=== PATIENT | female | born 2000 | race African-American/Black ===

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

== ENCOUNTER 2020-03-03 15:45 | Emergency (ER) | payer SELFPAY ==
--- NOTE | 2020-03-03 16:17 | ER Document Report ---
ED Medical Screen (RME) - General Chief Complaint: Vaginal Bleeding Stated Complaint: VAGINAL BLEEDING Time Seen by Provider: 03/03/20 16:05 Mode of Arrival: Ambulatory Information source: Patient Notes: 20-year-old female presented to ED for complaint of heavy vaginal bleeding with severe pain. She states this l period started yesterday. She states that today it is much heavier. She states the this cycle has been much heavier than her normal. She states since she started yesterday till today she is gone to 18 tampons multiple panty liners and over the last 2 hours she is leaked through tampons panty liner and her blood gains. She states her cramps are worse than normal. She states she got off of control in June which she was taken due to her. But they were starting to make her gain weight. She states that she had a couple good peers but the last 2 have been horrible. She states she does not smoke drink or use any illicit drugs. I have greeted and performed a rapid initial assessment of this patient. A comprehensive ED assessment and evaluation of the patient, analysis of test results and completion of medical decision making process will be conducted by an additional ED providers. - Related Data Allergies/Adverse Reactions: No Known Allergies Allergy (Unverified 11/14/19 23:42) Past Medical History Psychiatric Medical History: Reports: Hx Anxiety Physical Exam - Vital signs Vitals: Temp Pulse Resp BP Pulse Ox 98.2 F 84 20 128/70 H 100 03/03/20 15:51 03/03/20 15:51 03/03/20 15:51 03/03/20 15:51 03/03/20 15:51 Course - Vital Signs Vital signs: Temp Pulse Resp BP Pulse Ox 98.2 F 84 20 128/70 H 100 03/03/20 15:51 03/03/20 15:51 03/03/20 15:51 03/03/20 15:51 03/03/20 15:51 - Laboratory Result Diagrams: 03/03/20 16:21 03/03/20 16:21 Laboratory results interpreted by me: 03/03/20 03/03/20 16:21 16:21 Glucose 131 H ALT 39 H Alkaline Phosphatase 140 H Urine Protein 100 H Urine Blood LARGE H Urine Urobilinogen 2.0 H
[2020-03-03 16:40] LABS: ABSOLUTE EOSINOPHILS # (AUTO) 0.2 10^3/uL (0.0-0.6); ABSOLUTE LYMPHOCYTES (AUTO) 2.3 10^3/uL (0.5-4.7); ABSOLUTE MONOCYTES (AUTO) 0.4 10^3/uL (0.1-1.4); ABSOLUTE NEUT (AUTO) 3.3 10^3/uL (1.7-8.2); BASOPHILS % (AUTO) 0.6 % (0-2); EOSINOPHILS % (AUTO) 3.4 % (0-6); HEMATOCRIT 38.9 % (36.0-47.0); HEMOGLOBIN 13.1 g/dL (12.0-15.5); MEAN CORPUSCULAR HEMOGLOBIN 27.7 pg (27.0-33.4); MEAN CORPUSCULAR HGB CONC 33.7 g/dL (32.0-36.0); MEAN CORPUSCULAR VOLUME 82 fl (80-97); MONOCYTES % (AUTO) 5.7 % (3-13); PLATELET COUNT 305 10^3/uL (150-450); RED BLOOD COUNT 4.74 10^6/uL (3.72-5.28); RED CELL DISTRIBUTION WIDTH 13.8 % (11.5-14.0); SEGMENTED NEUTROPHILS % (AUTO) 53.3 % (42-78); TOTAL CELLS COUNTED % (AUTO) 100 %; WHITE BLOOD COUNT 6.1 10^3/uL (4.0-10.5)
[2020-03-03 16:42] LABS: APPEARANCE,URINE CLOUDY; BILIRUBIN,URINE NEGATIVE (NEGATIVE); COLOR,URINE RED; GLUCOSE, URINE NEGATIVE (NEGATIVE); KETONES,URINE NEGATIVE (NEGATIVE); LEUKOCYTE ESTERASE,URINE NEGATIVE (NEGATIVE); NITRITE,URINE NEGATIVE (NEGATIVE); PROTEIN,URINE 100 mg/dL (NEGATIVE)
[2020-03-03 17:01] LABS: ALKALINE PHOSPHATASE 140 U/L (38-126); ANION GAP 7 (5-19); ASPARTATE AMINO TRANSFERASE 29 U/L (14-36); BILIRUBIN,DIRECT 0.2 mg/dL (0.0-0.4); BILIRUBIN,TOTAL 0.6 mg/dL (0.2-1.3); BLOOD UREA NITROGEN 7 mg/dL (7-20); CALCIUM 9.6 mg/dL (8.4-10.2); CARBON DIOXIDE 27 mmol/L (22-30); CHLORIDE 105 mmol/L (98-107); GLUCOSE 131 mg/dL (75-110); POTASSIUM 3.8 mmol/L (3.6-5.0); TOTAL PROTEIN 7.1 g/dL (6.3-8.2)
--- NOTE | 2020-03-03 17:52 | RADIOLOGY REPORT (SQ) ---
EXAM DESCRIPTION: U/S NON-OB PELVIS TV W/O DOP IMAGES COMPLETED DATE/TIME: 03/03/2020 5:40 pm REASON FOR STUDY: Pelvic pain vaginal bleeding COMPARISON: None. TECHNIQUE: Dynamic and static grayscale images acquired of the pelvis via transvaginal approach and recorded on PACS. Additional selected color Doppler and spectral images recorded. LIMITATIONS: None. FINDINGS: UTERUS: Contour normal. No mass. ENDOMETRIAL STRIPE: No focal or generalized thickening. No masses. CERVIX: 2.1 cm. No nabothian cysts. RIGHT OVARY AND DOPPLER: Normal size. No worrisome masses. Normal arterial vascular flow without evid ence for torsion. LEFT OVARY AND DOPPLER: Normal size. No worrisome masses. Normal arterial vascular flow without evide nce for torsion. FREE FLUID: None noted. OTHER: No other significant finding. MEASUREMENTS: UTERUS: 7 x 4.4 x 4.3 cm. ENDOMETRIAL STRIPE: 7 mm. RIGHT OVARY: 2.7 x 1.8 x 2.7 cm. LEFT OVARY: 3 x 1.8 x 1.2 cm. IMPRESSION: NORMAL TRANSVAGINAL PELVIC ULTRASOUND. TECHNICAL DOCUMENTATION: JOB ID: [id number] [employer]- All Rights Reserved Rev-11/25 Reading location - IP/workstation name: [email or web address]
--- NOTE | 2020-03-03 23:18 | ER Document Report ---
ED GI/ - General Chief Complaint: Vaginal Bleeding Stated Complaint: VAGINAL BLEEDING Time Seen by Provider: 03/03/20 16:05 Mode of Arrival: Ambulatory - [facility] Notes: 20-year-old female presents with heavy menstrual bleeding. Patient states that she began her menstrual cycle yesterday, it is very heavy, she states she is passing large clots. She states that between yesterday and today she has used 18 tampons. She has bled through to her underwear 3 times. She states that she has never had a heavy cycle like this before. She is also having severe lower abdominal cramping. She was previously on control but it has since been discontinued. She did take 600 mg ibuprofen prior to arrival to the emergency department. - Related Data Allergies/Adverse Reactions: No Known Allergies Allergy (Unverified 11/14/19 23:42) Past Medical History - General Information source: Patient - Social History Smoking Status: Never Smoker Frequency of alcohol use: None Drug Abuse: None Family History: Reviewed & Not Pertinent, Hypertension Patient has homicidal ideation: No Psychiatric Medical History: Reports: Hx Anxiety Review of Systems - Review of Systems Constitutional: denies: Fever EENT: No symptoms reported Cardiovascular: denies: Chest pain Respiratory: denies: Short of breath Gastrointestinal: denies: Diarrhea, Vomiting Genitourinary: denies: Dysuria Female Genitourinary: Heavy/abnormal periods Musculoskeletal: denies: Back pain Skin: No symptoms reported Hematologic/Lymphatic: No symptoms reported Neurological/Psychological: No symptoms reported Physical Exam - Vital signs Vitals: Temp Pulse Resp BP Pulse Ox 98.2 F 84 20 128/70 H 100 03/03/20 15:51 03/03/20 15:51 03/03/20 15:51 03/03/20 15:51 03/03/20 15:51 - General General appearance: Appears well In distress: None - HEENT Head: Normocephalic, Atraumatic Extraocular movements intact: Yes Pupils: PERRL - Respiratory Breath sounds: Normal - Cardiovascular Rhythm: Regular Heart sounds: Normal auscultation - Abdominal Distension: No distension Bowel sounds: Normal Tenderness: Nontender - Extremities General upper extremity: Normal inspection General lower extremity: Normal inspection - Neurological Neuro grossly intact: Yes Cognition: Normal Orientation: AAOx4 - Psychological Associated symptoms: Normal affect - Skin Skin Temperature: Warm Course - Re-evaluation Re-evalutation: 20-year-old female arrives with an abnormally heavy menstrual periods, onset yesterday. Has associated cramping. On exam she is very well-appearing, her abdomen is nontender, she is not pale in appearance. Laboratory evaluation was done through triage process, she had no leukocytosis, no acute anemia, test negative. She additionally underwent transvaginal ultrasound which was overall read as no acute abnormality. I discussed with patient expectant management and offered reassurance. I discussed ibuprofen use. Advised her to have close follow-up with her primary care doctor, at this time she is undecided whether she wants to resume control use. Return precautions given, stable time discharge. - Vital Signs Vital signs: Temp Pulse Resp BP Pulse Ox 98.0 F 63 14 113/72 100 03/03/20 23:41 03/03/20 23:41 03/03/20 23:41 03/03/20 23:41 03/03/20 23:41 - Laboratory Result Diagrams: 03/03/20 16:21 03/03/20 16:21 Laboratory results interpreted by me: 03/03/20 03/03/20 16:21 16:21 Glucose 131 H ALT 39 H Alkaline Phosphatase 140 H Urine Protein 100 H Urine Blood LARGE H Urine Urobilinogen 2.0 H - Diagnostic Test Radiology reviewed: Image reviewed, Reports reviewed Discharge - Discharge Clinical Impression: Heavy menstrual period Qualifiers: Menorrhagia type: with regular cycle Qualified Code(s): N92.0 - Excessive and frequent menstruation with regular cycle Condition: Stable Disposition: HOME, SELF-CARE Additional Instructions: Please continue use of Motrin to aid in cramping and heavy bleeding. Please follow-up with your PCP. Return to the ED for any concerning worsening symptoms. Prescriptions: Ibuprofen [Ibu] 800 mg PO TIDP PRN #60 tablet PRN Reason: Forms: Return to Work
[2020-03-03] MEDS ORDERED: IBUPROFEN 800 MG TABLET PO ONE (23:30)
[2020-03-03 23:43] VITALS: BP 113/72
== END 2020-03-03 23:41 | disposition home or self-care (01) ==
LOC: ER 15:45
DX: N92.0 Excessive and frequent menstruation with regular cycle (principal); R10.30 Lower abdominal pain, unspecified
CPT/HCPCS: 36415; 76830; 80053; 81001; 84702; 85025; 99284